=== PATIENT | male | born 1950 | race Caucasian/White ===

== ENCOUNTER 2017-07-10 05:41 | Day surgery (SDC) | payer OTHER, BC ==
--- NOTE | 2017-07-08 20:48 | GHP ---
[f rep st] PREOP HISTORY AND PHYSICAL DATE OF SURGERY: 07/10/2017. CHIEF COMPLAINT: Left foot pain. HISTORY OF PRESENT ILLNESS: Patient is a 67-year-old, history of progressive bilateral (left greater than right) foot pain and deformity. His pain has been worsening with time, limiting his activities. PAST MEDICAL HISTORY: Positive for asthma, GERD, hypertension, and prostate disease. MEDICATIONS: He takes acyclovir, Flomax, gabapentin, nabumetone, omeprazole, oxycodone, sildenafil, tramadol, valsartan. ALLERGIES: Sulfa. SOCIAL HISTORY: Negative for tobacco use. PAST SURGICAL HISTORY: Positive for multiple previous orthopedic surgeries. PHYSICAL EXAMINATION: GENERAL: He is alert and oriented x3. No acute distress. He is 6 feet tall, weighs 225 pounds. HEENT: Head is normocephalic. Pupils equal, round, reactive to light. Extraocular eye movements intact. NECK: Supple. No JVD or lymphadenopathy. CHEST: Clear to auscultation with mild crackles. HEART: Regular rate and rhythm. No murmurs or gallops. ABDOMEN: Soft, nontender, nondistended. No organomegaly. GENITAL /RECTAL/BREASTS: Deferred. EXTREMITIES: Reveal severe left flatfoot deformity. ASSESSMENT: 1. Left stage III posterior tibial tendon dysfunction. 2. Gastrocnemius contracture. PLAN: Patient is scheduled to undergo correction of his deformity with medial column arthrodesis, calcaneal osteotomy, FDL transfer, gastroc recession, and possible subtalar arthrodesis. /[id number]/MODL MTDD
[2017-07-10] MEDS ORDERED: LR 1,000 ML IV ONE (06:26)
[2017-07-10] MEDS ORDERED: BUPIVACAINE 0.5% 30 ML SDV ONE (07:05)
--- NOTE | 2017-07-10 07:09 | PDANEPAE ---
ANE Past Medical History - Cardiovascular History Hx Hypertension: No Hx Arrhythmias: No Hx Chest Pain: No Hx Coronary Artery / Peripheral Vascular Disease: No Hx CHF / Valvular Disease: No Hx Palpitations: No Cardiovascular History Comment: WELL CONTROLLED - Pulmonary History Hx COPD: No Hx Asthma/Reactive Airway Disease: No Hx Recent Upper Respiratory Infection: No Hx Oxygen in Use at Home: No Hx Sleep Apnea: No Sleep Apnea Screening Result - Last Documented: Negative - Neurologic History Hx Cerebrovascular Accident: No Hx Seizures: No Hx Dementia: No - Endocrine History Hx Diabetes: No Hypothyroid: No Hyperthyroid: No Obesity: moderate - Renal History Hx Renal Disorders: No Renal History Comment: BPH - Liver History Hx Hepatic Disorders: No - Neurological & Psychiatric Hx Hx Neurological and Psychiatric Disorders: No - Cancer History Hx Cancer: No - Congenital Disorder History Hx Congenital Disorders: No - GI History Hx Gastrointestinal Disorders: Yes Gastrointestinal History Comment: ACID REFLUX/HEARTBURN - Other Health History Other Health History: ECZEMA MILD - Surgical History Prior Surgeries: R TKA. L BICEPS SURGERY. L LEG KICKED BY HORSE -DEBRIDEMENT ANE Review of Systems Review of Systems: - Exercise capacity METS (RN): 5 METS ANE Patient History - Allergies Allergies/Adverse Reactions: Sulfa (Sulfonamide Antibiotics) Allergy (Mild, Verified 07/10/17 06:19) Rash - Home Medications Home Medications: Gabapentin 07/08/17 [Last Taken 07/09/17] Imodium 2 mg (*) 07/08/17 [Last Taken 07/09/17] Multivitamins 07/08/17 [Last Taken 07/05/17] Nabumetone 07/08/17 [Last Taken 07/05/17] Omeprazole 07/08/17 [Last Taken 07/10/17] Tamsulosin HCl 07/08/17 [Last Taken 07/09/17] Tramadol HCl 07/08/17 [Last Taken 07/09/17] Tylenol 07/08/17 [Last Taken 07/09/17] Valsartan 07/08/17 [Last Taken 07/09/17] - NPO status NPO Since - Liquids (Date): 07/09/17 NPO Since - Liquids (Time): 20:00 NPO Since - Solids (Date): 07/09/17 NPO Since - Solids (Time): 20:00 - Smoking Hx Smoking Status: Former smoker - Family Anes Hx Family Hx Anesthesia Complications: NEG ANE Labs/Vital Signs - Vital Signs Blood Pressure: 155/93 Heart Rate: 73 Respiratory Rate: 17 O2 Sat (%): 92 Height: 182.88 cm Weight: 102.058 kg ANE Physical Exam - Airway Neck exam: decreased ROM Mallampati Score: Class 2 Mouth exam: normal dental/mouth exam, logan - Pulmonary Pulmonary: no respiratory distress - Cardiovascular Cardiovascular: regular rate and rhythym - ASA Status ASA Status: II ANE Anesthesia Plan Anesthesia Plan: GA w LMA Regional Anesthesia: continuous NB, adductor canal FNB, popliteal SNB
[2017-07-10] MEDS ORDERED: ceFAZolin 2 GM/DEXTROSE 100 ML IV ONE (07:10)
--- NOTE | 2017-07-10 07:13 | POSTOPPROG ---
Post Op Note Date of Operation: 07/10/17 Surgeon: Azael Bloom Anesthesia: GET(General Endotracheal) Pre-op Diagnosis: L PTTD, L Aquired flatfoot, L gastroc ctx Post-op Diagnosis: Same Procedure: L foot extended medial column arthrodesis, calcaneal osteotomy, gastroc rec Inf/Abcess present in the surg proc area at time of surgery?: No EBL: Minimal
[2017-07-10] MEDS ORDERED: PROPOFOL/EMULSION 500 MG/50 ML BOTTLE IV ONE (07:15)
[2017-07-10] MEDS ORDERED: MIDAZOLAM 2 MG/2 ML VIAL ONE (07:20)
[2017-07-10] MEDS ORDERED: MIDAZOLAM 2 MG/2 ML VIAL IVP ONE (07:22)
[2017-07-10] MEDS ORDERED: LIDOCAINE 2% 5 ML SDV ONE ×2 (07:24)
[2017-07-10] MEDS ORDERED: fentaNYL 250 MCG/5 ML INJ ONE (07:24)
[2017-07-10] MEDS ORDERED: ceFAZolin 2 GM/SWFI 2 GM/20 ML SYR IVP ONE (07:30)
[2017-07-10] MEDS ORDERED: PHENYLEPHRINE HCL 100 MCG/ML SYR ONE (08:36)
[2017-07-10] MEDS ORDERED: ROPIVACAINE 0.2% 1,100 MG in PUMP SET 1 EA NB SCH (09:00)
[2017-07-10] MEDS ORDERED: fentaNYL 100 MCG/2 ML INJ ONE (09:48)
[2017-07-10] MEDS ORDERED: LR 500 ML IV PRN (09:59)
[2017-07-10] MEDS ORDERED: LABETALOL HCL 5 MG/ML 20 ML MDV IVP PRN (09:59)
[2017-07-10] MEDS ORDERED: fentaNYL 100 MCG/2 ML INJ IVP PRN (09:59)
[2017-07-10] MEDS ORDERED: OXYCODONE/APAP 5/325 TAB PO PRN (09:59)
[2017-07-10] MEDS ORDERED: PROMETHAZINE HCL 25 MG/ML INJ IVP PRN (09:59)
[2017-07-10] MEDS ORDERED: NALOXONE HCL 0.4 MG/ML INJ IVP PRN (09:59)
--- NOTE | 2017-07-10 11:02 | POSTANESTH ---
Post Anesthetic Evaluation Cardiovascular Status: Normal, Stable Respiratory Status: Normal, Stable Level of Consciousness/Mental Status: Can Participate in Eval Pain Control: Adequate, Prn Tx Ordered Nausea/Vomiting Control: Adequate, Prn Tx Ordered Complications Possibly Related to Anesthesia: None Noted
[2017-07-10 12:45] VITALS: TEMP 207.1
[2017-07-10] MEDS ORDERED: OXYCODONE/APAP 5/325 TAB ONE (13:06)
[2017-07-10 13:48] VITALS: BP 153/70; PULSE 80; RESP 16; O2SAT 94
--- NOTE | 2017-07-12 20:30 | GOP ---
[f rep st] OPERATIVE REPORT DATE OF OPERATION: 07/10/2017 SURGEON: Azael Bloom MD ANESTHESIA: General plus indwelling popliteal block and saphenous nerve blocks performed by the anereji thesiologist at my request for postoperative pain management PREOPERATIVE DIAGNOSIS: 1. Left posterior tibial tendon dysfunction. 2. Left severe acquired flatfoot deformity. 3. Left gastrocnemius contracture. 4. Left hypermobile hallux valgus. POSTOPERATIVE DIAGNOSIS: 1. Left posterior tibial tendon dysfunction. 2. Left severe acquired flatfoot deformity. 3. Left gastrocnemius contracture. 4. Left hypermobile hallux valgus. PROCEDURE PERFORMED: 1. Left extended medial column arthrodesis (talonavicular arthrodesis, navicular cuneiform arthrodes is, medial cuneiform 1st metatarsal arthrodesis). 2. Left calcaneal osteotomy. 3. Left gastrocnemius recession. 4. Left posterior tibial tendon debridement. 5. Posterior tibial tendon debridement. 6. Left deltoid ligament reconstruction. 7. Intraoperative use of fluoroscopy. FINDINGS: ESTIMATED BLOOD LOSS: Minimal. INDICATIONS: The patient is a 67-year-old with progressive left foot pain. Clinically and radiograp hically he is noted to have a severe (yet supple) arch collapse. Based on his persistence of pain an d functional limitations, despite appropriate course of nonoperative treatment, he has was interested in pursuing operative treatment. From an operative standpoint, despite the supple nature of his def ormity, correction via an extended medial column arthrodesis was recommended. The patient acknowledg ed he understood the potential risks of the operation including but not limited to bleeding, infectio n, neurovascular damage leading to loss of limb or limb function, malunion, nonunion, need for hardwa re removal, pain or functional limitations despite operative treatment, persistence of deformity, and anesthetic risks. He acknowledged he understood the potential risks, planned procedure, and postope rative plan well, and had all questions answered. He consulted to the operative procedure. DESCRIPTION OF PROCEDURE: Patient was brought in the operating room after IV antibiotics were admini stered. Indwelling popliteal and saphenous nerve blocks performed by the anesthesiologist at my requ est for postoperative pain management. General anesthetic was administered. A tourniquet was placed on the left thigh, bump underneath the left hip and shoulder. The left lower extremity was prepped and draped in standard sterile fashion. After marking the incisions and Mike wrap exsanguination, jairo rniquet was inflated to 250. Attention was initially directed toward the gastroc recession. A longi tudinal incision was made at the posteromedial aspect of the lower leg at the level of the musculoten dinous junction and gastrocnemius. Skin and subcutaneous tissue were sharply incised. Sharp dissect ion was carried through the superficial posterior compartment fascia in line with the skin incision. Gastroc tendon was bluntly dissected, retracted with a speculum, and transected distal to its muscul otendinous structure. Superficial posterior compartment fascia and subcutaneous tissue were closed w ith 3-0 Vicryl suture in interrupted fashion. Skin was closed with 4-0 nylon interrupted sutures. Long oblique incision was made starting posterior to the medial malleolus and curving into the medial hindfoot and midfoot. Skin and subcutaneous tissue were sharply incised. The sheath of the posteri or tibial tendon was opened. The tendon was somewhat adherent to the sheath. This was freed from th e tendon. The talonavicular, navicular cuneiform and medial cuneiform 1st metatarsal joints were ritika ntified and opened. The attachment of the tibialis anterior was left intact. Utilizing a chisel yue geur and curette, all articular surfaces were denuded from these joints. In preparation for arthrode sis, the subchondral bone was drilled multiple times with a 2.0 mm drill bit and further roughened wi th a chisel. The joints were properly aligned and provisionally pinned with Be wires. Joint alignment was confirmed fluoroscopically and felt to be favorable. Fixation across the joint was per formed. A small incision was made along the posteromedial aspect of the ankle just medial to the Ach illes tendon. Utilizing a drill sleeve for soft tissue protection, a 3.2 mm drill hole was placed fr om the posteromedial talus down the medial column of the foot, crossing the talonavicular, navicular cuneiform and cuneiform 1st metatarsal joints. The 110 mm long 6.5 mm screw with 16 mm threads was p laced through this as an intramedullary stabilization. Fluoroscopic views confirmed favorable arthro desis positions and hardware placement. Multiple additional lag screws were placed across the joints . A 6.5 mm screw with 16 mm threads was placed from the navicular into the talus, with multiple 4.0 mm cortical screws placed in lag fashion from the 1st metatarsal into the medial cuneiform, the media l cuneiform and 1st metatarsal, and medial cuneiform into the talus. Fluoroscopic views confirmed fa vorable hardware and arthrodesis positions. The posterior tibial tendon was then advanced into the n avicular with #1 PDS suture. It was not felt that adding an FDL transfer would be of benefit, based on the arthrodesis of the medial column and the fact that the posterior tibial tendon appeared to be in satisfactory condition. Attention was directed toward closure. The deep tissue was closed with 2-0 Vicryl suture in interrup yonatan fashion. Subcutaneous tissue was closed with 3-0 Vicryl suture in interrupted fashion. Skin prosper sed with skin laura. While the overall medial column correction appeared favorable both clinically and fluoroscopically, there was still some residual heel valgus. A supplemental calcaneal osteotomy was felt to be necessary to further correct the deformity. An oblique incision was made along the l ateral aspect of the calcaneal tuberosity. Skin and subcutaneous tissue were sharply incised. Sharp dissection was carried down to the periosteal level. After protecting the dorsal and plantar aspect s of the tuberosity with Hohmann retractors, a saw was utilized to create a slight chevron-shaped ost eotomy in a lateral to medial direction. The osteotomy was gapped open with an osteotome and bone sp reader. The proximal segment was translated approximately 1 cm medially and secured with three 4.0 m m cortical screws placed in lag fashion through stab incisions on the heel. Fluoroscopic views confi rmed favorable osteotomy and hardware positions. The subcutaneous tissue was closed with 3-0 Vicryl suture in an interrupted fashion and the skin was closed with 4-0 nylon interrupted vertical mattress sutures. The wounds were dressed with sterile Adaptic, 4 x 4, and Webril, and placed in a below-kne e splint. The patient tolerated the procedure well, and was taken to the recovery room, extubated, i n stable condition postoperatively. All sponge, needle, and instrument counts were reported as being correct. DRAINS: None. COMPLICATIONS: None. PLAN: Patient will be discharged home nonweightbearing on his operative extremity. /[id number]/MODL
== END 2017-07-10 14:15 | disposition home or self-care (01) ==
LOC: FSGY 05:41
PROVIDERS: ATTEND Orthopaedic Surgery Foot and Ankle Surgery
PROC: 0SGL04Z Fusion of Left Tarsometatarsal Joint with Internal Fixation Device, Open Approach (ICD-10-PCS; principal; 2017-07-10 07:15)
PROC: 0LSP0ZZ Reposition Left Lower Leg Tendon, Open Approach (ICD-10-PCS; principal; 2017-07-10 07:15)
PROC: BQ1H1ZZ Fluoroscopy of Left Ankle using Low Osmolar Contrast (ICD-10-PCS; principal; 2017-07-10 07:15)
PROC: 0Q8M0ZZ Division of Left Tarsal, Open Approach (ICD-10-PCS; principal; 2017-07-10 07:15)
DX: M76.822 Posterior tibial tendinitis, left leg (principal); M62.462 Contracture of muscle, left lower leg; M21.42 Flat foot [pes planus] (acquired), left foot; M20.12 Hallux valgus (acquired), left foot; K21.9 Gastro-esophageal reflux disease without esophagitis; I10 Essential (primary) hypertension; J45.909 Unspecified asthma, uncomplicated; Z88.2 Allergy status to sulfonamides
CPT/HCPCS: C1713; J2250; J2370; J2704; J2795; J3010